=== PATIENT | female | born 1945 | race Caucasian/White ===

== ENCOUNTER 2024-03-13 10:46 | Emergency (ER) | payer OTHER ==
[~2024-03-13] VITALS: Wt 57.2 kg
[2024-03-13] MEDS ORDERED: NAPROXEN500 MG PO (11:09)
[2024-03-13] MEDS ORDERED: HYDROXYZINE HCL25 MG PO (11:09)
[2024-03-13] MEDS ORDERED: PEG3350238 GM PO (11:10)
[2024-03-13] MEDS ORDERED: APAP PO (11:11)
[2024-03-13] MEDS ORDERED: CODEINE PO (11:11)
[2024-03-13] MEDS ORDERED: DULCOLAX5 M1 PO (11:15)
[2024-03-13] MEDS ORDERED: AMLODIPINE BESYL5 MG PO (11:15)
[2024-03-13] MEDS ORDERED: LEVETIRACETAM500 MG PO (11:15)
[2024-03-13] MEDS ORDERED: APRESOLINE25 MG PO (11:16)
[2024-03-13] MEDS ORDERED: CENTRUM SILVER1 EACH PO (11:16)
[2024-03-13 11:34] LABS: BASO % 0.4 % (0.0-1.0); EOS # 0.2 10*3/uL (0.0-0.4); EOS % 3.4 % (1.0-4.0); HEMATOCRIT 43.9 % (37.0-47.0); MEAN CELL VOLUME 97.3 fl (81.0-99.0); MEAN CORPUSCULAR HGB 31.7 pg (27.0-31.0); MEAN CORPUSCULAR HGB CONC 32.6 g/dl (33.0-37.0); MEAN PLATELET VOLUME 10.6 fl (9.6-12.3); MONO # 0.4 10*3/uL (0.1-1.0); MONO % 7.8 % (3.0-9.0); NEUT # 2.8 10*3/uL (2.3-7.9); NEUT % 63.4 % (47.0-73.0); PLATELET COUNT AUTOMATED 158 10*3/uL (130-400); RED BLOOD COUNT 4.51 10*6/uL (4.10-5.10); RED CELL DISTRI WIDTH 12.2 % (0-14.5); WHITE BLOOD COUNT 4.5 10*3/uL (4.8-10.8)
[2024-03-13 11:53] LABS: BUN 14 mg/dl (9-23); CHLORIDE 105 mmol/L (98-107); POTASSIUM 3.9 mmol/L (3.4-5.1)
[2024-03-13 11:54] LABS: BILIRUBIN Negative (Negative); BLOOD Negative (Negative); CLARITY Clear (Clear); COLOR Yellow (Yellow); GLUCOSE Negative (Negative); KETONE Negative (Negative); LEUKO ESTERASE Negative (Negative); NITRITE Negative (Negative); SPECIFIC GRAVITY 1.015 (1.001-1.030)
[2024-03-13 12:08] LABS: BACTERIA 1+; MUCOUS 1+; WBC 0-2 wbc/hpf (0-5)
== END 2024-03-13 13:49 | disposition home or self-care (01) ==
LOC: ED 10:46
PROVIDERS: Physician Assistant Medical
DX: K59.00 Constipation, unspecified (principal); R53.1 Weakness; R25.2 Cramp and spasm; M25.522 Pain in left elbow; F17.200 Nicotine dependence, unspecified, uncomplicated; Z86.73 Personal history of transient ischemic attack (TIA), and cerebral infarction without residual deficits; Z91.041 Radiographic dye allergy status; Z79.899 Other long term (current) drug therapy; Z98.84 Bariatric surgery status